=== PATIENT | female | born 1995 | race Caucasian/White ===

== ENCOUNTER 2017-01-15 19:53 | Emergency (ER) | payer BC ==
[2017-01-15 20:16] VITALS: BP 135/74
[2017-01-15] MEDS ORDERED: HYDROcodone/ACETAMIN 5-325 MG* 1 TAB PO ONE (20:43)
--- NOTE | 2017-01-15 20:44 | UC ---
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) no fevers, no blisters, no drainage - History of Current Complaint Chief Complaint: [place] Stated Complaint: SEVERE SUNBURN LEGS Time Seen by Provider: 01/15/17 20:34 Hx Obtained From: Patient Occurred: Days Ago Length of Exposure: Hours Onset Severity: Moderate Current Severity: Moderate Pain Intensity: 9 Pain Scale Used: 0-10 Numeric Location: RLE, LLE Character: U/V Aggravating: Other - everything Alleviating: Ointments - aloe Associated Signs & Symptoms: Positive: Negative Occupational Injury: No - Allergy/Home Medications Allergies/Adverse Reactions: Allergies Allergy/AdvReac Type Severity Reaction Status Date / Time No Known Allergies Allergy Verified 01/15/17 20:10 Home Medications: Home Medications Bc Pill 1 tab PO BEDTIME 01/15/17 [History Confirmed 01/15/17] PMH/Surg Hx/FS Hx/Imm Hx Previously Healthy: Yes - Surgical History Surgical History: None - Family History Known Family History: Positive: None - Social History Occupation: Employed Full-time Lives: With Family Alcohol Use: Occasionally Substance Use Type: None Smoking Status (MU): Never Smoked Tobacco - Immunization History Vaccination Up to Date: Yes Review of Systems Constitutional: Negative Skin: Other - burn anterior R and L Legs Eyes: Negative ENT: Negative Respiratory: Negative Cardiovascular: Negative Gastrointestinal: Negative Genitourinary: Negative Motor: Negative Neurovascular: Negative Musculoskeletal: Negative Neurological: Negative Psychological: Negative All Other Systems Reviewed And Are Negative: Yes Physical Exam Triage Information Reviewed: Yes Appearance: Well-Appearing, Well-Nourished, Pain Distress Vital Signs: Initial Vital Signs Temp 98.3 F 01/15/17 20:11 Pulse 111 01/15/17 20:11 Resp 16 01/15/17 20:11 BP 135/74 01/15/17 20:11 Pulse Ox 97 01/15/17 20:11 Vital Signs Reviewed: Yes Eye Exam: Normal Eyes: Positive: Conjunctiva Clear ENT Exam: Normal ENT: Positive: Normal ENT inspection, Hearing grossly normal. Negative: Nasal congestion, Nasal drainage, Trismus, Muffled/hoarse voice Dental Exam: Normal Neck exam: Normal Neck: Positive: Supple, Nontender, No Lymphadenopathy Respiratory Exam: Normal Respiratory: Positive: Chest non-tender, No respiratory distress, No accessory muscle use Cardiovascular Exam: Normal Cardiovascular: Positive: No Murmur, Pulses Normal, Brisk Capillary Refill, Tachycardia Musculoskeletal Exam: Normal Musculoskeletal: Positive: Strength Intact, ROM Intact, No Edema Neurological Exam: Normal Neurological: Positive: Alert, Muscle Tone Normal, Fatigued Psychological Exam: Normal Skin Exam: Normal Skin: Positive: Other - R and L Lower Legs anterior 1 degree uv taveras Burn Calculation - Right Leg 18% Right Leg 1st De - Left Leg 18% Left Leg 1st De - Total 1st Deg Total: 18 Total % BSA: 18 - Black Formula for Fluid Resuscitation Weight: 104.326 kg 24 -Hour Fluid Replacement: 0.0 Course/Dx Burn - Course Course Of Treatment: cool compress, ibuprofen , vicoden prn, elevate legs follow with pcp - Differential Dx - Burn Differential Diagnoses: Ultraviolet Burn - Diagnoses Clinic Provider Diagnoses: Patrial thickness uv (sun burn) both anterior legs Discharge - Discharge Plan Condition: Stable Disposition: HOME Prescriptions: HYDROcodone/ACETAMIN 5-325 MG* [[place] 5-325 TAB*] 1 tab PO Q6H PRN #16 tab MDD 4 PRN Reason: Pain Ibuprofen [Ibuprofen 100 MG/5 ML] 600 mg PO Q6H PRN #750 ml PRN Reason: pain Patient Education Materials: Hydrocodone/Acetaminophen (By mouth), Ibuprofen ( By mouth), Sunburn (ED), Cold Compress or Soak (ED) Forms: *Work Release Referrals: Gerard Rocha [Medical Doctor] - 4 Days
== END 2017-01-15 20:57 | disposition home or self-care (01) ==
LOC: UCCORT 19:53
DX: L55.1 Sunburn of second degree (principal)
CPT/HCPCS: 99212; G0463